=== PATIENT | male | born 1940 | race Caucasian/White ===

== ENCOUNTER 2017-12-28 06:37 | Day surgery (SDC) | payer MEDICARE, BC ==
[~2017-12-28] VITALS: Ht 181.6 cm; Wt 68.5 kg
[~2017-12-28 06:37] MED LIST: ASPI-1159 PO; ATOR20TA65 PO; BETH25TA PO; CHOL500010 PO; LEVO88TA7 PO
[2017-12-28] MEDS ORDERED: MIDAZOLAM HCL 2 MG/2 ML VIAL ONE (07:42)
[2017-12-28] MEDS ORDERED: PROPOFOL 200MG/20ML VIAL IV ONE (07:42)
[2017-12-28] MEDS ORDERED: FENTANYL CITRATE/PF 50MCG/ML 2ML VIAL ONE (07:42)
[2017-12-28] MEDS ORDERED: METOCLOPRAMIDE HCL 10MG/2ML VIAL ONE (07:42)
[2017-12-28] MEDS ORDERED: LIDOCAINE HCL/PF 1% 10 MG/ML 5ML VIAL ONE (07:42)
[2017-12-28] MEDS ORDERED: GLYCOPYRROLATE 0.2 MG/ML 2ML VIAL ONE (07:42)
[2017-12-28] MEDS ORDERED: SUCCINYLCHOLINE CHLORIDE 200MG/10ML VIAL IV ONE (07:42)
[2017-12-28] MEDS ORDERED: ONDANSETRON HCL 4MG/2ML VIAL ONE (07:42)
[2017-12-28] MEDS ORDERED: GENTAMICIN SULF 40MG/ML 2ML VIAL ONE (08:02)
[2017-12-28] MEDS ORDERED: SODIUM CHLORIDE 0.9% 1,000 ML IV ONE (09:43)
[2017-12-28] MEDS ORDERED: MEPERIDINE HCL/PF 25MG/ML CPJ IV PRN (09:45)
[2017-12-28] MEDS ORDERED: HYDROMORPHONE HCL/PF 2MG/ML CPJ IV PRN (09:45)
[2017-12-28] MEDS ORDERED: ONDANSETRON HCL 4MG/2ML VIAL IV PRN (09:45)
== END 2017-12-28 11:30 | disposition home or self-care (01) ==
LOC: SURGERY 06:37
PROVIDERS: ATTEND Urology
DX: N32.0 Bladder-neck obstruction (principal); N32.3 Diverticulum of bladder; R33.9 Retention of urine, unspecified; E78.00 Pure hypercholesterolemia, unspecified; Z88.8 Allergy status to other drugs, medicaments and biological substances; Z88.0 Allergy status to penicillin; Z79.82 Long term (current) use of aspirin; Z79.899 Other long term (current) drug therapy
CPT/HCPCS: 52640; 82962; 88305; J0330; J1580; J2250; J2405; J2765; J3010; J3490; J7120; J2704

== ENCOUNTER → 2019-07-04 | Outpatient (CLI) | payer BC ==
[~2019-07-04] MED LIST changes: -ASPI-1159 PO; +ASPI-1393 PO
== END | disposition home or self-care (01) ==
LOC: RAD 09:21
PROVIDERS: ATTEND Internal Medicine Endocrinology, Diabetes & Metabolism
DX: N62 Hypertrophy of breast (principal)
CPT/HCPCS: 76641; 77066